=== PATIENT | female | born 1980 | race Caucasian/White ===

== ENCOUNTER 2018-06-07 22:26 | Emergency (ER) | payer SELFPAY ==
[~2018-06-07] VITALS: Ht 152.4 cm; Wt 54.0 kg
[2018-06-07 22:31] VITALS: BP 148/88
== END 2018-06-07 23:16 | disposition left against medical advice (07) ==
LOC: EME 22:26
DX: R68.84 Jaw pain (principal); R51 Headache; R20.2 Paresthesia of skin; Z53.21 Procedure and treatment not carried out due to patient leaving prior to being seen by health care provider